=== PATIENT | male | born 1995 | race Hispanic/Latino ===

== ENCOUNTER 2021-07-03 19:42 | Emergency (ER) | payer OTHER ==
[2021-07-03] MEDS ORDERED: Metoclopramide HCl 10 MG/2 ML VIAL ONE (20:18)
[2021-07-03] MEDS ORDERED: Ketorolac Tromethamine 30 MG/ML VIAL ONE (20:18)
== END 2021-07-03 22:05 | disposition home or self-care (01) ==
LOC: ERS 19:42
DX: S06.0X9A Concussion with loss of consciousness of unspecified duration, initial encounter (principal); W51.XXXA Accidental striking against or bumped into by another person, initial encounter; Y93.65 Activity, lacrosse and field hockey
CPT/HCPCS: 70450; 96374; 96375; J1885; J2765